=== PATIENT | female | born 1975 | race Caucasian/White ===

== ENCOUNTER 2016-08-05 15:24 | Emergency (ER) | payer OTHER ==
[~2016-08-05] VITALS: Ht 165.1 cm; Wt 125.2 kg
[~2016-08-05 15:24] MED LIST: AMOXIL500 MG PO; ANAPROX DS550 MG PO; AUGMENTIN 875 M1 TAB PO; AUGMENTIN 875875 MG PO; BACTRIM DS 8001 TA1 PO; BENADRYL25 MG PO; BENTYL20 MG; CARAFATE1 G1; CIPRO250 MG PO; CIPRO500 MG PO; CIPRODEX 0.3%-7.5 ML OT; CIPROFLOXACIN500 MG PO; CLARITIN10 MG PO; DIFLUCAN150 MG PO; FERROUS SULFAT325 MG PO; FLEXERIL5 MG PO; FLONASE ALLERG9.9 ML NAS; FLONASE0.05 MG/AC NS; FLOVENT0.11 MG/AC INH; Fioricet 325 MG1 TAB PO; HYDROCODONE BIT1 T11 PO; K-TAB20 MEQ PO; KEFLEX500 MG PO; KEY-E400 IU PO; LEVAQUIN750 M1 PO; LEVOFLOXACIN500 MG PO; LISINOPRIL10 MG PO; LOMOTIL 0.025 M1 TA1 PO; LOPRESSOR25 MG PO; LOPRESSOR50 MG PO; METOPROLOL TART50 M1 PO; MIRAPEX0.5 MG PO; MIRAPEX1.5 MG PO; MOTRIN800 MG PO; Miralax Powder255 GM PO; Motrin,Rufen800 MG PO; NAPROSYN500 MG PO; NEURONTIN300 MG PO; Oscal,Oyster S500 MG PO; PANTOPRAZOLE SO40 MG PO; PANTOPRAZOLE40 MG PO; PEPCID20 MG PO; PREDNICOT20 MG PO; PREDNISONE10 MG PO; PRILOSEC40 MG PO; PRINIVIL10 MG PO; PRINIVIL20 MG PO; PROTONIX40 MG PO; PROVENTIL0.09 MG/AC IH; ROBITUSSIN AC 110 ML PO; ROBITUSSIN DM120 ML PO; SEPTRA DS 800 M1 TAB PO; SINGULAIR10 M1 PO; SKELAXIN800 M1 PO; SYNTHROID,LEV100 MCG PO; TAMIFLU75 MG PO; TESSALON PERLE100 M1 PO; TORADOL10 MG PO; TRAMADOL HCL50 MG; TRAMADOL HCL50 MG PO; TRAMADOL50 MG PO; VICODIN 5/500 505 MG PO; VICODIN 500 MG-1 TAB PO; VITAMIN D32000 I1 PO; ZITHROMAX Z PA250 MG PO; ZOFRAN ODT4 MG SL; ZOFRAN4 MG PO; ZYRTEC10 MG
[2016-08-05] MEDS ORDERED: BACTRIM DS 8001 TA1 PO (15:53)
[2016-08-05] MEDS ORDERED: CEPHALEXIN500 M1 PO (15:53)
[2016-08-05] MEDS ORDERED: HYDROCODONE BIT1 T11 PO (15:53)
== END 2016-08-05 16:05 | disposition home or self-care (01) ==
LOC: ED 15:24
DX: N61.0 Mastitis without abscess (principal); F17.200 Nicotine dependence, unspecified, uncomplicated; Z90.49 Acquired absence of other specified parts of digestive tract; Z79.899 Other long term (current) drug therapy

== ENCOUNTER 2016-09-14 15:00 | Emergency (ER) | payer OTHER ==
[~2016-09-14] VITALS: Ht 165.1 cm; Wt 117.9 kg
[~2016-09-14 15:00] MED LIST changes: +CEPHALEXIN500 M1 PO
[2016-09-14 15:01] VITALS: BP 175/91
[2016-09-14] MEDS ORDERED: NAPROSYN500 MG PO (16:43)
== END 2016-09-14 16:56 | disposition home or self-care (01) ==
LOC: ED 15:00
DX: S90.32XA Contusion of left foot, initial encounter (principal); F17.200 Nicotine dependence, unspecified, uncomplicated; W20.8XXA Other cause of strike by thrown, projected or falling object, initial encounter; Y93.9 Activity, unspecified; Y92.9 Unspecified place or not applicable; Y99.9 Unspecified external cause status

== ENCOUNTER 2016-12-30 18:19 | Emergency (ER) | payer OTHER ==
[~2016-12-30] VITALS: Wt 117.9 kg
[2016-12-30 18:25] VITALS: BP 169/94
[2016-12-30 18:49] LABS: BILIRUBIN NEGATIVE (NEGATIVE); BLOOD NEGATIVE (NEGATIVE); CLARITY CLEAR (CLEAR); COLOR YELLOW (YELLOW); GLUCOSE NEGATIVE (NEGATIVE); KETONE NEGATIVE (NEGATIVE); LEUKO ESTERASE NEGATIVE (NEGATIVE); NITRITE NEGATIVE (NEGATIVE); PH 5.5 (5.0-9.0); PROTEIN NEGATIVE (NEGATIVE); SPECIFIC GRAVITY >= 1.030 (1.005-1.030)
[2016-12-30 19:23] LABS: BACTERIA TRACE; EPITHELIAL CELLS 51-100; MUCOUS TRACE; RBC 0-2 rbc/hpf (0-2); URINE REFLEX COMMENT NO (NO); WBC 0-2 wbc/hpf (0-5)
== END 2016-12-30 19:48 | disposition home or self-care (01) ==
LOC: ED 18:19
PROVIDERS: Student in an Organized Health Care Education/Training Program
DX: R51 Headache (principal); F17.200 Nicotine dependence, unspecified, uncomplicated; I10 Essential (primary) hypertension; K21.9 Gastro-esophageal reflux disease without esophagitis; E03.9 Hypothyroidism, unspecified; Z90.49 Acquired absence of other specified parts of digestive tract; Z98.890 Other specified postprocedural states; Z79.899 Other long term (current) drug therapy

== ENCOUNTER → 2017-02-25 | Outpatient (CLI) | payer OTHER | END | disposition home or self-care (01) | LOC: US 14:00 | DX: N92.6 Irregular menstruation, unspecified (principal) ==

== ENCOUNTER 2017-08-11 17:24 | Emergency (ER) | payer OTHER ==
[~2017-08-11] VITALS: Ht 167.6 cm; Wt 104.3 kg
[2017-08-11 17:25] VITALS: BP 178/84
[2017-08-11] MEDS ORDERED: MOBIC7.5 MG PO (19:06)
== END 2017-08-11 19:27 | disposition home or self-care (01) ==
LOC: ED 17:24
DX: M25.562 Pain in left knee (principal); M17.12 Unilateral primary osteoarthritis, left knee; Z79.899 Other long term (current) drug therapy; Z90.49 Acquired absence of other specified parts of digestive tract

== ENCOUNTER 2017-08-21 15:34 | Emergency (ER) | payer OTHER ==
[~2017-08-21] VITALS: Ht 165.1 cm; Wt 113.4 kg
[~2017-08-21 15:34] MED LIST changes: +MOBIC7.5 MG PO
[2017-08-21 15:39] VITALS: BP 176/65
[2017-08-21] MEDS ORDERED: CEPHALEXIN500 M1 PO (15:47)
[2017-08-21] MEDS ORDERED: NAPROSYN500 MG PO (15:47)
== END 2017-08-21 15:53 | disposition home or self-care (01) ==
LOC: ED 15:34
DX: N61.1 Abscess of the breast and nipple (principal); F17.200 Nicotine dependence, unspecified, uncomplicated; Z79.899 Other long term (current) drug therapy

== ENCOUNTER 2017-09-09 15:00 | Emergency (ER) | payer OTHER ==
[~2017-09-09] VITALS: Wt 86.2 kg
[2017-09-09 15:20] VITALS: BP 173/97
== END 2017-09-09 17:12 | disposition home or self-care (01) ==
LOC: ED 15:00
DX: M77.9 Enthesopathy, unspecified (principal); F17.200 Nicotine dependence, unspecified, uncomplicated; Z79.899 Other long term (current) drug therapy

== ENCOUNTER 2018-02-13 17:11 | Emergency (ER) | payer OTHER ==
[~2018-02-13] VITALS: Ht 165.1 cm; Wt 113.4 kg
[~2018-02-13 17:11] MED LIST changes: +AMOXICILLIN500 M2 PO; +Meclizine25 MG PO; +ZYRTEC10 MG PO
[2018-02-13] MEDS ORDERED: CEPHALEXIN500 M1 PO (17:36)
[2018-02-13] MEDS ORDERED: SEPTDS PO (17:36)
== END 2018-02-13 17:42 | disposition home or self-care (01) ==
LOC: ED 17:11
DX: N61.0 Mastitis without abscess (principal); Z79.899 Other long term (current) drug therapy; Z90.49 Acquired absence of other specified parts of digestive tract

== ENCOUNTER 2018-02-14 21:31 | Inpatient (IN) | payer OTHER ==
[~2018-02-14] VITALS: Ht 165.1 cm; Wt 127.6 kg
--- NOTE | ~2018-02-14 | PR ---
[place], [place] PROGRESS NOTE NAME: [id number] UNIT #: [id number] ROOM: 529 DOCTOR: SHADE KHAN MD BIRTHDATE: [birth year] DOS: 02/16/2018 SUBJECTIVE: The patient has been admitted to hospital with cellulitis of the breast with possible abscess of the left breast and her redness and swelling and pain of the left breast is increasing in spite of the antibiotic treatment and the patient had an ultrasound of the breast done yesterday, which showed no abnormal mass or fluid collection seen. Edema in the soft tissue is present. On examination, the patient has extension of the redness and there is some induration of the breast in the lower and medial part of the breast, but there is no definite abscess noted. B12 and folic acid is normal. OBJECTIVE: VITAL SIGNS: Her blood pressure today is 146/57, pulse 89, respirations 20, temperature 98.1. CHEST: Clear. HEART: Regular. ABDOMEN: Soft. So, the patient is not improving yet in spite of the antibiotic. SHADE KHAN MD CM:PNRUSS [id number] SHADE KHAN MD 03/10/18 0707 interface
--- NOTE | ~2018-02-14 | PR ---
[place], [place] PROGRESS NOTE [id number] UNIT #: [id number] ROOM: 529 DOCTOR: SHADE KHAN MD BIRTHDATE: [birth year] DOS: 02/15/2018 SUBJECTIVE: The patient has been admitted to hospital with the left breast infection. She had developed some cellulitis and then was seen in the Emergency on 02/12/2018 also, but then the pain and tenderness have become worse and needed to be admitted to the hospital as breast infection getting out of control, use some IV antibiotic. Her chest x-ray does not show any problem. The patient has a past history of hypertension, GERD, hypothyroidism, osteoarthritis, restless leg syndrome, tobacco abuse and history of tonsillectomy, cholecystectomy in the past. Her hemoglobin is 11.4. Comprehensive metabolic profile showed glucose 104, BUN 7, creatinine 0.54, chloride 109 and calcium 7.9. Lipid profile is fairly normal. CBC showed white count 12,300, hemoglobin 11.4, hematocrit 36.9, has swelling of breast and is going for ultrasound of her breast. OBJECTIVE: VITAL SIGNS: Her blood pressure 150/76, pulse 102, respirations 20, temperature 98.3. SHADE KHAN MD CM:PNTRANS [id number] SHADE KHAN MD 03/10/18 0817 interface
[~2018-02-14 21:31] MED LIST changes: +SEPTDS PO
[2018-02-14 21:35] VITALS: BP 175/106
[2018-02-14 22:35] LABS: BILIRUBIN NEGATIVE (NEGATIVE); BLOOD NEGATIVE (NEGATIVE); CLARITY SL CLOUDY (CLEAR); COLOR YELLOW (YELLOW); GLUCOSE NEGATIVE (NEGATIVE); KETONE NEGATIVE (NEGATIVE); LEUKO ESTERASE NEGATIVE (NEGATIVE); NITRITE NEGATIVE (NEGATIVE); UROBILINOGEN 0.2 E.U./dl (0.2-1.0)
[2018-02-14 22:40] VITALS: BP 160/100
[2018-02-14 22:48] LABS: BASO % 0.3 % (0.0-1.0); EOS # 0.3 10*3/uL (0.0-0.4); EOS % 1.8 % (1.0-4.0); HEMATOCRIT 38.3 % (37.0-47.0); HEMOGLOBIN 12.4 g/dl (12.0-16.0); LYMPH # 4.5 10*3/uL (1.3-4.4); LYMPH % 31.3 % (27.0-41.0); MEAN CELL VOLUME 81.5 fl (81.0-99.0); MEAN CORPUSCULAR HGB 26.4 pg (27.0-31.0); MEAN CORPUSCULAR HGB CONC 32.4 g/dl (33.0-37.0); MEAN PLATELET VOLUME 9.7 fl (9.6-12.3); MONO # 0.6 10*3/uL (0.1-1.0); MONO % 4.5 % (3.0-9.0); NEUT # 8.8 10*3/uL (2.3-7.9); NEUT % 61.6 % (47.0-73.0); PLATELET COUNT AUTOMATED 292 10*3/uL (130-400); RED CELL DISTRI WIDTH 14.2 % (0-14.5); WHITE BLOOD COUNT 14.2 10*3/uL (4.8-10.8)
[2018-02-14 23:04] LABS: ALBUMIN 3.3 gm/dl (3.1-4.5); ALKALINE PHOSPHATASE 94 U/L (45-117); BUN 9 mg/dl (7-24); CHLORIDE 107 mmol/L (98-107); CREATININE 0.65 mg/dL (0.55-1.02); POTASSIUM 3.3 mmol/L (3.5-5.1); SGOT/AST 24 IU/L (3-35); SGPT/ALT 41 U/L (12-78); SODIUM 140 mmol/L (136-145); TOTAL PROTEIN 7.6 gm/dL (6.4-8.2)
[2018-02-14 23:05] VITALS: BP 150/76
[2018-02-14 23:06] LABS: B-hCG (QUALITATIVE) NEGATIVE (NEGATIVE)
[2018-02-14 23:10] LABS: EPITHELIAL CELLS 35-40; MUCOUS TRACE
[2018-02-15 06:30] LABS: HEMATOCRIT 36.5 % (37.0-47.0); HEMOGLOBIN 11.4 g/dl (12.0-16.0); MEAN CORPUSCULAR HGB 26.5 pg (27.0-31.0); MEAN CORPUSCULAR HGB CONC 31.2 g/dl (33.0-37.0); MEAN PLATELET VOLUME 9.9 fl (9.6-12.3); PLATELET COUNT AUTOMATED 290 10*3/uL (130-400); RED BLOOD COUNT 4.31 10*6/uL (4.10-5.10); RED CELL DISTRI WIDTH 14.2 % (0-14.5); WHITE BLOOD COUNT 12.3 10*3/uL (4.8-10.8)
[2018-02-15 06:31] LABS: MEAN CELL VOLUME 84.7 fl (81.0-99.0)
[2018-02-15 06:50] LABS: ALBUMIN 2.8 gm/dl (3.1-4.5); BUN 7 mg/dl (7-24); CHLORIDE 109 mmol/L (98-107); CHOLESTEROL 148 mg/dL (<200); CREATININE 0.54 mg/dL (0.55-1.02); PHOSPHOROUS 3.2 mg/dL (2.5-4.9); POTASSIUM 3.7 mmol/L (3.5-5.1); SGOT/AST 20 IU/L (3-35); SGPT/ALT 33 U/L (12-78); SODIUM 141 mmol/L (136-145); TRIGLYCERIDES 102 mg/dl (<150); VLDL CHOLESTEROL 20 mg/dL (6-40)
[2018-02-15 06:57] LABS: ALKALINE PHOSPHATASE 79 U/L (45-117); FREE T4 1.04 ng/dl (0.76-1.46); HDL CHOLESTEROL 35 mg/dl (40-60); LDL CHOLESTEROL 93 mg/dL (9-159); TOTAL PROTEIN 6.2 gm/dL (6.4-8.2)
[2018-02-15 07:19] LABS: PLATELET SUFFICIENCY NORMAL (NORMAL); TOTAL CELLS COUNTED 100 #CELLS
[2018-02-15 08:00] VITALS: BP 146/66
[2018-02-15 08:43] LABS: VITAMIN D, 25-HYDROXY 14.9 ng/mL (30-100)
[2018-02-15 12:00] VITALS: BP 143/50
[2018-02-15 16:00] VITALS: BP 160/68
[2018-02-15 20:00] VITALS: BP 144/74
[2018-02-16] VITALS: BP 146/57
[2018-02-16 08:00] VITALS: BP 165/98
[2018-02-16 12:00] VITALS: BP 160/81
[2018-02-16 16:00] VITALS: BP 122/91
[2018-02-16 17:00] VITALS: BP 142/84
[2018-02-16 20:00] VITALS: BP 138/64
[2018-02-17] VITALS: BP 126/52
[2018-02-17 08:00] VITALS: BP 154/81
[2018-02-17 16:00] VITALS: BP 158/72
[2018-02-17 20:00] VITALS: BP 147/69
[2018-02-18] VITALS: BP 149/65
[2018-02-18 06:24] LABS: BASO # 0.1 10*3/uL (0.0-0.1); BASO % 0.6 % (0.0-1.0); EOS # 0.3 10*3/uL (0.0-0.4); EOS % 3.3 % (1.0-4.0); HEMATOCRIT 39.1 % (37.0-47.0); HEMOGLOBIN 12.2 g/dl (12.0-16.0); LYMPH # 4.2 10*3/uL (1.3-4.4); LYMPH % 46.3 % (27.0-41.0); MEAN CORPUSCULAR HGB 25.9 pg (27.0-31.0); MEAN CORPUSCULAR HGB CONC 31.2 g/dl (33.0-37.0); MEAN PLATELET VOLUME 10.1 fl (9.6-12.3); MONO # 0.5 10*3/uL (0.1-1.0); MONO % 5.8 % (3.0-9.0); NEUT % 43.8 % (47.0-73.0); PLATELET COUNT AUTOMATED 325 10*3/uL (130-400); RED BLOOD COUNT 4.71 10*6/uL (4.10-5.10); WHITE BLOOD COUNT 9.1 10*3/uL (4.8-10.8)
[2018-02-18 06:28] LABS: BUN 9 mg/dl (7-24); CHLORIDE 105 mmol/L (98-107); CREATININE 0.53 mg/dL (0.55-1.02); POTASSIUM 4.2 mmol/L (3.5-5.1); SODIUM 139 mmol/L (136-145)
[2018-02-18 08:00] VITALS: BP 156/77
[2018-02-18 12:00] VITALS: BP 148/86
[2018-02-18 16:00] VITALS: BP 129/76
[2018-02-18 20:00] VITALS: BP 151/75
[2018-02-19] VITALS: BP 126/69
[2018-02-19 08:00] VITALS: BP 138/79
[2018-02-19] MEDS ORDERED: DOXYCYCLINE100 M3 PO (10:41)
[2018-02-19] MEDS ORDERED: METFORMIN HYDR500 MG PO (11:46)
== END 2018-02-19 11:51 | disposition home or self-care (01) | DRG 872 ==
LOC: ED 21:31 → EDHOLD 22:27 → 5E 22:27
PROVIDERS: Emergency Medicine Emergency Medical Services; Internal Medicine
DX: A41.9 Sepsis, unspecified organism (principal); E44.0 Moderate protein-calorie malnutrition; Z68.42 Body mass index [BMI] 45.0-49.9, adult; N61.0 Mastitis without abscess; R19.7 Diarrhea, unspecified; R79.82 Elevated C-reactive protein (CRP); E87.6 Hypokalemia; K21.9 Gastro-esophageal reflux disease without esophagitis; I10 Essential (primary) hypertension; E03.9 Hypothyroidism, unspecified; J44.9 Chronic obstructive pulmonary disease, unspecified; M54.12 Radiculopathy, cervical region; M19.90 Unspecified osteoarthritis, unspecified site; E11.65 Type 2 diabetes mellitus with hyperglycemia; F17.210 Nicotine dependence, cigarettes, uncomplicated; G25.81 Restless legs syndrome; D64.9 Anemia, unspecified; E66.9 Obesity, unspecified; E87.8 Other disorders of electrolyte and fluid balance, not elsewhere classified; Z90.49 Acquired absence of other specified parts of digestive tract; Z71.6 Tobacco abuse counseling; Z80.1 Family history of malignant neoplasm of trachea, bronchus and lung; Z83.3 Family history of diabetes mellitus; Z82.49 Family history of ischemic heart disease and other diseases of the circulatory system; Z79.899 Other long term (current) drug therapy

== ENCOUNTER 2018-08-06 16:11 | Emergency (ER) | payer SELFPAY ==
[~2018-08-06] VITALS: Wt 113.4 kg
[2018-08-06 16:11] VITALS: BP 172/87
[~2018-08-06 16:11] MED LIST changes: +DOXYCYCLINE100 M3 PO; +METFORMIN HYDR500 MG PO
[2018-08-06] MEDS ORDERED: ROBAXIN500 M1 PO (18:23)
[2018-08-06] MEDS ORDERED: NAPROSYN500 MG PO (18:23)
[2018-08-06] MEDS ORDERED: MEDROL DOSEPAK4 MG PO (18:23)
== END 2018-08-06 18:26 | disposition home or self-care (01) ==
LOC: ED 16:11
DX: S46.911A Strain of unspecified muscle, fascia and tendon at shoulder and upper arm level, right arm, initial encounter (principal); F17.200 Nicotine dependence, unspecified, uncomplicated; Z79.899 Other long term (current) drug therapy; X58.XXXA Exposure to other specified factors, initial encounter; Y93.89 Activity, other specified; Y92.89 Other specified places as the place of occurrence of the external cause; Y99.8 Other external cause status

== ENCOUNTER 2018-11-25 14:40 | Emergency (ER) | payer SELFPAY ==
[~2018-11-25] VITALS: Wt 117.9 kg
[2018-11-25 14:40] VITALS: BP 158/81
[~2018-11-25 14:40] MED LIST changes: +MEDROL DOSEPAK4 MG PO; +ROBAXIN500 M1 PO
[2018-11-25] MEDS ORDERED: PRAMIPEXOLE DI0.5 MG PO ×2 (16:25→16:26)
== END 2018-11-25 16:36 | disposition home or self-care (01) ==
LOC: ED 14:40
DX: G25.81 Restless legs syndrome (principal); R19.7 Diarrhea, unspecified; R11.2 Nausea with vomiting, unspecified; E11.9 Type 2 diabetes mellitus without complications; I10 Essential (primary) hypertension; E03.9 Hypothyroidism, unspecified; M19.90 Unspecified osteoarthritis, unspecified site; K21.9 Gastro-esophageal reflux disease without esophagitis; F17.200 Nicotine dependence, unspecified, uncomplicated; Z76.0 Encounter for issue of repeat prescription; Z79.899 Other long term (current) drug therapy

== ENCOUNTER 2019-09-22 09:35 | Emergency (ER) | payer SELFPAY ==
[~2019-09-22] VITALS: Ht 167.6 cm; Wt 104.3 kg
[~2019-09-22 09:35] MED LIST changes: +PRAMIPEXOLE DI0.5 MG PO
[2019-09-22 09:44] VITALS: BP 158/96
[2019-09-22] MEDS ORDERED: VIBRAMYCIN100 MG PO (11:31)
== END 2019-09-22 11:37 | disposition home or self-care (01) ==
LOC: ED 09:35
DX: J40 Bronchitis, not specified as acute or chronic (principal); I10 Essential (primary) hypertension; K21.9 Gastro-esophageal reflux disease without esophagitis; E07.9 Disorder of thyroid, unspecified; F17.200 Nicotine dependence, unspecified, uncomplicated; Z79.899 Other long term (current) drug therapy; Z90.49 Acquired absence of other specified parts of digestive tract; Z90.89 Acquired absence of other organs

== ENCOUNTER 2019-12-01 09:44 | Emergency (ER) | payer SELFPAY ==
[~2019-12-01] VITALS: Ht 167.6 cm; Wt 102.1 kg
[~2019-12-01 09:44] MED LIST changes: +VIBRAMYCIN100 MG PO
[2019-12-01 09:50] VITALS: BP 149/81
[2019-12-01] MEDS ORDERED: KEFLEX500 M1 PO (10:08)
[2019-12-01] MEDS ORDERED: SEPTDS PO (10:08)
== END 2019-12-01 10:18 | disposition home or self-care (01) ==
LOC: ED 09:44
DX: L03.116 Cellulitis of left lower limb (principal); I10 Essential (primary) hypertension; K21.9 Gastro-esophageal reflux disease without esophagitis; F17.200 Nicotine dependence, unspecified, uncomplicated; Z79.899 Other long term (current) drug therapy

== ENCOUNTER 2019-12-03 21:41 | Emergency (ER) | payer SELFPAY ==
[~2019-12-03] VITALS: Ht 167.6 cm; Wt 99.8 kg
[~2019-12-03 21:41] MED LIST changes: +KEFLEX500 M1 PO
[2019-12-03 21:54] VITALS: BP 152/77
[2019-12-03 22:41] LABS: BASO # 0.1 10*3/uL (0.0-0.1); BASO % 0.4 % (0.0-1.0); EOS # 0.2 10*3/uL (0.0-0.4); EOS % 1.9 % (1.0-4.0); HEMATOCRIT 39.3 % (37.0-47.0); LYMPH # 3.8 10*3/uL (1.3-4.4); LYMPH % 32.4 % (27.0-41.0); MEAN CELL VOLUME 77.1 fl (81.0-99.0); MEAN CORPUSCULAR HGB 24.1 pg (27.0-31.0); MEAN CORPUSCULAR HGB CONC 31.3 g/dl (33.0-37.0); MEAN PLATELET VOLUME 9.3 fl (9.6-12.3); MONO # 0.6 10*3/uL (0.1-1.0); MONO % 5.3 % (3.0-9.0); NEUT % 59.7 % (47.0-73.0); PLATELET COUNT AUTOMATED 390 10*3/uL (130-400); RED CELL DISTRI WIDTH 16.2 % (0-14.5); WHITE BLOOD COUNT 11.7 10*3/uL (4.8-10.8)
[2019-12-03 22:58] LABS: ALBUMIN 3.3 gm/dl (3.1-4.5); ALKALINE PHOSPHATASE 113 U/L (45-117); BUN 12 mg/dl (7-24); CHLORIDE 107 mmol/L (98-107); CREATININE 0.65 mg/dL (0.55-1.02); POTASSIUM 3.4 mmol/L (3.5-5.1); SGOT/AST 62 IU/L (3-35); SGPT/ALT 67 U/L (12-78); SODIUM 137 mmol/L (136-145); TOTAL PROTEIN 7.4 gm/dL (6.4-8.2)
[2019-12-03] MEDS ORDERED: CLEOCIN HCL150 MG PO ×2 (23:10→23:18)
== END 2019-12-03 23:33 | disposition home or self-care (01) ==
LOC: ED 21:41
PROVIDERS: Nurse Practitioner Family
DX: L02.416 Cutaneous abscess of left lower limb (principal); L03.90 Cellulitis, unspecified; I10 Essential (primary) hypertension; K21.9 Gastro-esophageal reflux disease without esophagitis; Z79.899 Other long term (current) drug therapy

== ENCOUNTER → 2020-04-17 | Outpatient (CLI) | payer SELFPAY ==
[~2020-04-17] MED LIST changes: +CLEOCIN HCL150 MG PO
== END | disposition home or self-care (01) ==
LOC: COVID19 14:17
PROVIDERS: ATTEND Internal Medicine
DX: Z20.828 Contact with and (suspected) exposure to other viral communicable diseases (principal)

== ENCOUNTER 2020-04-23 12:48 | Emergency (ER) | payer SELFPAY ==
[~2020-04-23] VITALS: Ht 172.7 cm; Wt 95.3 kg
[2020-04-23 13:01] VITALS: BP 178/97
== END 2020-04-23 14:40 | disposition home or self-care (01) ==
LOC: ED 12:48
DX: R06.02 Shortness of breath (principal); R07.89 Other chest pain; R53.83 Other fatigue; Z79.899 Other long term (current) drug therapy; Z20.828 Contact with and (suspected) exposure to other viral communicable diseases

== ENCOUNTER → 2020-05-05 | Outpatient (CLI) | payer SELFPAY | END | disposition home or self-care (01) | LOC: COVID19 15:37 | PROVIDERS: ATTEND Internal Medicine | DX: Z20.828 Contact with and (suspected) exposure to other viral communicable diseases (principal) ==

== ENCOUNTER 2020-08-02 08:10 | Observation (INO) | payer SELFPAY ==
[~2020-08-02] VITALS: Ht 167.6 cm; Wt 127.9 kg
[~2020-08-02 08:10] MED LIST changes: +ZESTRIL40 MG PO
[2020-08-02 08:16] VITALS: BP 181/89
[2020-08-02 08:52] LABS: BASO % 0.4 % (0.0-1.0); EOS # 0.2 10*3/uL (0.0-0.4); EOS % 2.8 % (1.0-4.0); HEMATOCRIT 42.4 % (37.0-47.0); LYMPH # 2.9 10*3/uL (1.3-4.4); LYMPH % 34.8 % (27.0-41.0); MEAN CELL VOLUME 80.8 fl (81.0-99.0); MEAN CORPUSCULAR HGB 25.5 pg (27.0-31.0); MEAN CORPUSCULAR HGB CONC 31.6 g/dl (33.0-37.0); MEAN PLATELET VOLUME 9.8 fl (9.6-12.3); MONO # 0.4 10*3/uL (0.1-1.0); MONO % 5.3 % (3.0-9.0); NEUT # 4.6 10*3/uL (2.3-7.9); NEUT % 56.3 % (47.0-73.0); PLATELET COUNT AUTOMATED 279 10*3/uL (130-400); RED BLOOD COUNT 5.25 10*6/uL (4.10-5.10); RED CELL DISTRI WIDTH 14.8 % (0-14.5); WHITE BLOOD COUNT 8.2 10*3/uL (4.8-10.8)
[2020-08-02 09:03] LABS: ACT PARTIAL THROMBO TIME 25.1 SECONDS (20.0-32.1)
[2020-08-02 09:08] LABS: ALBUMIN 3.3 gm/dl (3.1-4.5); ALKALINE PHOSPHATASE 134 U/L (45-117); BUN 11 mg/dl (7-24); CHLORIDE 104 mmol/L (98-107); CREATININE 0.71 mg/dL (0.55-1.02); LIPASE 107 U/L (73-393); POTASSIUM 3.9 mmol/L (3.5-5.1); SGOT/AST 164 IU/L (3-35); SGPT/ALT 153 U/L (12-78); SODIUM 135 mmol/L (136-145); TOTAL PROTEIN 7.4 gm/dL (6.4-8.2)
[2020-08-02 09:11] LABS: BETA-HCG, QUANT < 1.0 mIU/mL (1-3); TROPONIN I < 0.015 ng/ml (<0.045)
[2020-08-02 09:15] LABS: BILIRUBIN Negative (Negative); BLOOD Negative (Negative); CLARITY Clear (Clear); COLOR Yellow (Yellow); GLUCOSE 3+ (Negative); KETONE Negative (Negative); LEUKO ESTERASE Negative (Negative); NITRITE Negative (Negative); PH 5.5 (4.5-8.0); SPECIFIC GRAVITY >= 1.030 (1.001-1.030); UROBILINOGEN 0.2 E.U./dl (0.0-1.0)
[2020-08-02 09:30] LABS: BACTERIA 2+; EPITHELIAL CELLS 16-20; WBC 0-2 wbc/hpf (0-5)
[2020-08-02 11:50] VITALS: BP 169/84
[2020-08-02] MEDS ORDERED: GLUCOTROL10 MG PO (14:36)
[2020-08-02] MEDS ORDERED: NEURONTIN300 MG PO (14:36)
[2020-08-02] MEDS ORDERED: MIRAPEX0.5 MG PO (14:37)
[2020-08-02] MEDS ORDERED: GLUCOPHAGE1000 MG PO (14:42)
[2020-08-02] MEDS ORDERED: LIPITOR10 MG PO (14:42)
[2020-08-02] MEDS ORDERED: HYDR25T PO (14:43)
[2020-08-02] MEDS ORDERED: MOBIC15 MG PO (14:43)
[2020-08-02 15:09] VITALS: BP 160/80
[2020-08-02 16:00] VITALS: BP 153/99
[2020-08-02 20:00] VITALS: BP 151/71
[2020-08-03] VITALS: BP 161/84
[2020-08-03 06:18] LABS: BASO % 0.4 % (0.0-1.0); EOS # 0.3 10*3/uL (0.0-0.4); EOS % 2.8 % (1.0-4.0); HEMATOCRIT 42.4 % (37.0-47.0); LYMPH # 4.2 10*3/uL (1.3-4.4); LYMPH % 43.7 % (27.0-41.0); MEAN CELL VOLUME 80.9 fl (81.0-99.0); MEAN CORPUSCULAR HGB 25.6 pg (27.0-31.0); MEAN CORPUSCULAR HGB CONC 31.6 g/dl (33.0-37.0); MEAN PLATELET VOLUME 9.7 fl (9.6-12.3); MONO # 0.4 10*3/uL (0.1-1.0); NEUT # 4.7 10*3/uL (2.3-7.9); NEUT % 48.9 % (47.0-73.0); PLATELET COUNT AUTOMATED 285 10*3/uL (130-400); RED BLOOD COUNT 5.24 10*6/uL (4.10-5.10); RED CELL DISTRI WIDTH 14.9 % (0-14.5); WHITE BLOOD COUNT 9.6 10*3/uL (4.8-10.8)
[2020-08-03 06:46] LABS: ALBUMIN 3.2 gm/dl (3.1-4.5); ALKALINE PHOSPHATASE 126 U/L (45-117); BUN 10 mg/dl (7-24); CHLORIDE 105 mmol/L (98-107); CHOLESTEROL 211 mg/dL (<200); CREATININE 0.46 mg/dL (0.55-1.02); POTASSIUM 4.1 mmol/L (3.5-5.1); SGOT/AST 171 IU/L (3-35); SGPT/ALT 151 U/L (12-78); SODIUM 137 mmol/L (136-145); TOTAL PROTEIN 7.1 gm/dL (6.4-8.2); TRIGLYCERIDES 133 mg/dl (<150); VLDL CHOLESTEROL 27 mg/dL (6-40)
[2020-08-03 06:52] LABS: FREE T4 1.02 ng/dl (0.76-1.46); HDL CHOLESTEROL 47 mg/dl (40-60); LDL CHOLESTEROL 137 mg/dL (9-159)
[2020-08-03 07:45] VITALS: BP 140/80
[2020-08-03 07:51] LABS: VITAMIN D, 25-HYDROXY 9.4 ng/mL (30-100)
[2020-08-03 08:00] VITALS: BP 132/81
[2020-08-03 12:17] VITALS: BP 155/80
[2020-08-03] MEDS ORDERED: GLUCOPHAGE1000 MG PO (13:22)
[2020-08-03] MEDS ORDERED: VITAMIN D250 MCG PO (13:22)
[2020-08-03] MEDS ORDERED: GLUCOTROL10 MG PO (13:22)
[2020-08-04 05:05] LABS: HEP B CORE AB, IGM Negative (Negative); HEPATITIS B SURFACE AG Negative (Negative); HEPATITIS C VIRUS ANTIBODY <0.1 s/co (0.0-0.9)
== END 2020-08-03 15:56 | disposition home or self-care (01) ==
LOC: ED 08:10 → EDHOLD 11:17 → 5E 11:17 → EDHOLD 11:17 → 5E 12:27
PROVIDERS: Emergency Medicine; Hospitalist; ADMIT Internal Medicine; ATTEND Internal Medicine
DX: R07.2 Precordial pain (principal); F17.200 Nicotine dependence, unspecified, uncomplicated; R42 Dizziness and giddiness; R74.01 Elevation of levels of liver transaminase levels; F17.209 Nicotine dependence, unspecified, with unspecified nicotine-induced disorders; E11.65 Type 2 diabetes mellitus with hyperglycemia; K21.9 Gastro-esophageal reflux disease without esophagitis; E03.9 Hypothyroidism, unspecified; I10 Essential (primary) hypertension; M19.90 Unspecified osteoarthritis, unspecified site; G25.81 Restless legs syndrome; E44.0 Moderate protein-calorie malnutrition; E66.01 Morbid (severe) obesity due to excess calories; Z90.49 Acquired absence of other specified parts of digestive tract; Z71.6 Tobacco abuse counseling; Z98.890 Other specified postprocedural states

== ENCOUNTER → 2020-08-04 | Outpatient (CLI) | payer SELFPAY ==
[~2020-08-04] MED LIST changes: +GLUCOPHAGE1000 MG PO; +GLUCOTROL10 MG PO; +HYDR25T PO; +LIPITOR10 MG PO; +MOBIC15 MG PO; +PHENERGAN25 M3 PO; +VITAMIN D250 MCG PO
== END | disposition home or self-care (01) ==
LOC: CARD 01:50
PROVIDERS: ATTEND Internal Medicine Cardiovascular Disease
DX: R07.9 Chest pain, unspecified (principal)

== ENCOUNTER 2020-08-21 15:39 | Emergency (ER) | payer SELFPAY ==
[~2020-08-21] VITALS: Wt 127.0 kg
[~2020-08-21 15:39] MED LIST changes: -PHENERGAN25 M3 PO
[2020-08-21 15:56] VITALS: BP 151/78
[2020-08-21 16:40] LABS: ALBUMIN 3.8 gm/dl (3.1-4.5); ALKALINE PHOSPHATASE 103 U/L (45-117); BUN 9 mg/dl (7-24); CHLORIDE 106 mmol/L (98-107); CREATININE 0.57 mg/dL (0.55-1.02); POTASSIUM 3.3 mmol/L (3.5-5.1); SGOT/AST 83 IU/L (3-35); SGPT/ALT 119 U/L (12-78); SODIUM 138 mmol/L (136-145); TOTAL PROTEIN 7.9 gm/dL (6.4-8.2)
[2020-08-21] MEDS ORDERED: PHENERGAN25 M3 PO (16:59)
== END 2020-08-21 17:38 | disposition home or self-care (01) ==
LOC: ED 15:39
PROVIDERS: Student in an Organized Health Care Education/Training Program
DX: R11.2 Nausea with vomiting, unspecified (principal); T50.995A Adverse effect of other drugs, medicaments and biological substances, initial encounter; F17.200 Nicotine dependence, unspecified, uncomplicated; Z79.899 Other long term (current) drug therapy; Z92.89 Personal history of other medical treatment; Z90.49 Acquired absence of other specified parts of digestive tract; Y92.89 Other specified places as the place of occurrence of the external cause

== ENCOUNTER → 2020-09-15 | Outpatient (CLI) | payer SELFPAY ==
[~2020-09-15] MED LIST changes: +PHENERGAN25 M3 PO
[2020-09-15 11:49] LABS: BUN 6 mg/dl (7-24); CHLORIDE 106 mmol/L (98-107); CREATININE 0.58 mg/dL (0.55-1.02); POTASSIUM 3.4 mmol/L (3.5-5.1); SODIUM 138 mmol/L (136-145)
== END | disposition home or self-care (01) ==
LOC: RESCLI 01:20
PROVIDERS: Internal Medicine; ATTEND Internal Medicine Nephrology
DX: E11.65 Type 2 diabetes mellitus with hyperglycemia (principal); R11.0 Nausea; G25.81 Restless legs syndrome; G62.9 Polyneuropathy, unspecified; E55.9 Vitamin D deficiency, unspecified; E78.5 Hyperlipidemia, unspecified; F17.200 Nicotine dependence, unspecified, uncomplicated; Z79.84 Long term (current) use of oral hypoglycemic drugs; Z79.899 Other long term (current) drug therapy; Z90.49 Acquired absence of other specified parts of digestive tract; Z98.890 Other specified postprocedural states

== ENCOUNTER 2020-11-25 18:20 | Emergency (ER) | payer SELFPAY ==
[~2020-11-25] VITALS: Ht 165.1 cm; Wt 114.3 kg
[2020-11-25 18:29] VITALS: BP 153/90
[2020-11-25] MEDS ORDERED: KENALOG 0.025%15 GM T (18:43)
== END 2020-11-25 19:10 | disposition home or self-care (01) ==
LOC: ED 18:20
DX: L23.9 Allergic contact dermatitis, unspecified cause (principal); E11.9 Type 2 diabetes mellitus without complications; F17.200 Nicotine dependence, unspecified, uncomplicated; Z79.899 Other long term (current) drug therapy; Z90.89 Acquired absence of other organs; Z90.49 Acquired absence of other specified parts of digestive tract

== ENCOUNTER 2021-01-22 17:23 | Emergency (ER) | payer SELFPAY ==
[~2021-01-22] VITALS: Ht 167.6 cm; Wt 99.8 kg
[~2021-01-22 17:23] MED LIST changes: +KENALOG 0.025%15 GM T
[2021-01-22 18:27] VITALS: BP 152/73
[2021-01-22] MEDS ORDERED: PREDNISONE20 M1 PO (19:39)
[2021-01-22] MEDS ORDERED: PROVENTIL HFA6.7 GM INH (19:39)
== END 2021-01-22 21:15 | disposition home or self-care (01) ==
LOC: ED 17:23
DX: U07.1 COVID-19 (principal); Z90.49 Acquired absence of other specified parts of digestive tract; Z79.899 Other long term (current) drug therapy

== ENCOUNTER → 2021-01-30 | Outpatient (CLI) | payer SELFPAY ==
[~2021-01-30] MED LIST changes: +PREDNISONE20 M1 PO; +PROVENTIL HFA6.7 GM INH
[2021-01-30 15:18] LABS: BILIRUBIN Negative (Negative); BLOOD Negative (Negative); CLARITY Cloudy (Clear); COLOR Yellow (Yellow); GLUCOSE Negative (Negative); HEMATOCRIT 44.8 % (37.0-47.0); KETONE Trace (Negative); LEUKO ESTERASE Negative (Negative); MEAN CELL VOLUME 84.5 fl (81.0-99.0); MEAN CORPUSCULAR HGB 27.2 pg (27.0-31.0); MEAN CORPUSCULAR HGB CONC 32.1 g/dl (33.0-37.0); MEAN PLATELET VOLUME 9.3 fl (9.6-12.3); NITRITE Negative (Negative); PLATELET COUNT AUTOMATED 367 10*3/uL (130-400); RED CELL DISTRI WIDTH 14.2 % (0-14.5); SPECIFIC GRAVITY >= 1.030 (1.001-1.030); WHITE BLOOD COUNT 15.5 10*3/uL (4.8-10.8)
[2021-01-30 15:34] LABS: BACTERIA 2+; EPITHELIAL CELLS 31-40; MUCOUS 1+; RBC 0-2 rbc/hpf (0-2)
[2021-01-30 15:47] LABS: ALBUMIN 3.5 gm/dl (3.1-4.5); ALKALINE PHOSPHATASE 107 U/L (45-117); BUN 12 mg/dl (7-24); CHLORIDE 107 mmol/L (98-107); CHOLESTEROL 239 mg/dL (<200); CREATININE 0.56 mg/dL (0.55-1.02); LDL CHOLESTEROL 149 mg/dL (9-159); POTASSIUM 3.5 mmol/L (3.5-5.1); SGOT/AST 33 IU/L (3-35); SGPT/ALT 44 U/L (12-78); SODIUM 139 mmol/L (136-145); TOTAL PROTEIN 7.8 gm/dL (6.4-8.2); TRIGLYCERIDES 210 mg/dl (<150)
[2021-01-30 16:15] LABS: FREE T4 0.85 ng/dl (0.76-1.46)
[2021-01-30 16:17] LABS: VITAMIN D, 25-HYDROXY 22.6 ng/mL (30-100)
[2021-01-30 16:23] LABS: ATYPICAL LYMPHS 4 % (0-0); PLATELET SUFFICIENCY NORMAL (NORMAL); TOTAL CELLS COUNTED 100 #CELLS
[2021-01-31 12:07] LABS: CREATININE,URINE 217.2 mg/dL (Not Estab.)
== END | disposition home or self-care (01) ==
LOC: RESCLI 00:17
PROVIDERS: ATTEND Internal Medicine Nephrology
DX: R20.8 Other disturbances of skin sensation (principal); E11.65 Type 2 diabetes mellitus with hyperglycemia; G25.81 Restless legs syndrome; E78.5 Hyperlipidemia, unspecified; E55.9 Vitamin D deficiency, unspecified; G62.9 Polyneuropathy, unspecified; I10 Essential (primary) hypertension; R19.5 Other fecal abnormalities; R39.9 Unspecified symptoms and signs involving the genitourinary system; K21.9 Gastro-esophageal reflux disease without esophagitis; Z79.84 Long term (current) use of oral hypoglycemic drugs; Z79.899 Other long term (current) drug therapy; F17.210 Nicotine dependence, cigarettes, uncomplicated; Z90.49 Acquired absence of other specified parts of digestive tract

== ENCOUNTER → 2021-02-07 | Outpatient (CLI) | payer SELFPAY | END | disposition home or self-care (01) | LOC: RESCLI 00:27 | PROVIDERS: ATTEND Internal Medicine | DX: E11.65 Type 2 diabetes mellitus with hyperglycemia (principal); G25.81 Restless legs syndrome; E78.5 Hyperlipidemia, unspecified; G62.9 Polyneuropathy, unspecified; R39.9 Unspecified symptoms and signs involving the genitourinary system; K21.9 Gastro-esophageal reflux disease without esophagitis; R19.7 Diarrhea, unspecified; K76.0 Fatty (change of) liver, not elsewhere classified; Z79.84 Long term (current) use of oral hypoglycemic drugs; Z79.899 Other long term (current) drug therapy ==

== ENCOUNTER → 2021-02-15 | Outpatient (CLI) | payer SELFPAY | END | disposition home or self-care (01) | LOC: RESCLI 00:25 | PROVIDERS: ATTEND Student in an Organized Health Care Education/Training Program | DX: R19.7 Diarrhea, unspecified (principal); E11.65 Type 2 diabetes mellitus with hyperglycemia; G25.81 Restless legs syndrome; E55.9 Vitamin D deficiency, unspecified; K21.9 Gastro-esophageal reflux disease without esophagitis; G62.9 Polyneuropathy, unspecified; Z79.84 Long term (current) use of oral hypoglycemic drugs; Z79.899 Other long term (current) drug therapy; Z98.890 Other specified postprocedural states; Z90.49 Acquired absence of other specified parts of digestive tract ==

== ENCOUNTER → 2021-02-22 | Outpatient (CLI) | payer SELFPAY | END | disposition home or self-care (01) | LOC: RESCLI 01:09 | PROVIDERS: ATTEND Student in an Organized Health Care Education/Training Program | DX: E11.65 Type 2 diabetes mellitus with hyperglycemia (principal); G25.81 Restless legs syndrome; E55.9 Vitamin D deficiency, unspecified; G62.9 Polyneuropathy, unspecified; I10 Essential (primary) hypertension; E78.5 Hyperlipidemia, unspecified; K21.9 Gastro-esophageal reflux disease without esophagitis; Z90.49 Acquired absence of other specified parts of digestive tract; Z98.890 Other specified postprocedural states; Z79.84 Long term (current) use of oral hypoglycemic drugs; Z79.899 Other long term (current) drug therapy ==

== ENCOUNTER 2021-05-25 18:19 | Emergency (ER) | payer SELFPAY ==
[2021-05-25 18:30] VITALS: BP 149/90
[2021-05-25] MEDS ORDERED: ZOFRAN4 MG PO (18:50)
== END 2021-05-26 00:23 | disposition home or self-care (01) ==
LOC: ED 18:19
DX: R50.9 Fever, unspecified (principal); Z20.822 Contact with and (suspected) exposure to COVID-19; Z79.899 Other long term (current) drug therapy; F17.200 Nicotine dependence, unspecified, uncomplicated; R05.9 Cough, unspecified; R11.2 Nausea with vomiting, unspecified

== ENCOUNTER 2021-12-27 15:39 | Emergency (ER) | payer SELFPAY ==
[~2021-12-27] VITALS: Wt 104.3 kg
[2021-12-27 15:49] VITALS: BP 158/90
[2021-12-27 16:30] LABS: HEMATOCRIT 45.8 % (37.0-47.0); MEAN CELL VOLUME 81.8 fl (81.0-99.0); MEAN CORPUSCULAR HGB 26.8 pg (27.0-31.0); MEAN CORPUSCULAR HGB CONC 32.8 g/dl (33.0-37.0); PLATELET COUNT AUTOMATED 378 10*3/uL (130-400); RED CELL DISTRI WIDTH 14.6 % (0-14.5); WHITE BLOOD COUNT 13.2 10*3/uL (4.8-10.8)
[2021-12-27 16:33] LABS: MANUAL DIFF REFLEX YES
[2021-12-27 16:48] LABS: ALKALINE PHOSPHATASE 118 U/L (45-117); BUN 10 mg/dl (7-24); CHLORIDE 106 mmol/L (98-107); CREATININE 0.64 mg/dL (0.55-1.02); POTASSIUM 3.6 mmol/L (3.5-5.1); SGOT/AST 26 IU/L (3-35); SGPT/ALT 39 U/L (12-78); SODIUM 138 mmol/L (136-145); TOTAL PROTEIN 8.1 gm/dL (6.4-8.2)
[2021-12-27 17:02] LABS: PLATELET SUFFICIENCY NORMAL (NORMAL); TOTAL CELLS COUNTED 100 #CELLS
[2021-12-27] MEDS ORDERED: SEPTDS PO (18:03)
[2021-12-27] MEDS ORDERED: CEPHALEXIN500 M1 PO (18:03)
== END 2021-12-27 18:13 | disposition home or self-care (01) ==
LOC: ED 15:39
PROVIDERS: Physician Assistant
DX: L03.311 Cellulitis of abdominal wall (principal); E11.9 Type 2 diabetes mellitus without complications; R11.0 Nausea; F17.200 Nicotine dependence, unspecified, uncomplicated; Z90.49 Acquired absence of other specified parts of digestive tract; Z79.899 Other long term (current) drug therapy

== ENCOUNTER → 2022-03-02 | Outpatient (CLI) | payer SELFPAY | END | disposition home or self-care (01) | LOC: RESCLI 13:49 | PROVIDERS: ATTEND Internal Medicine | DX: M47.814 Spondylosis without myelopathy or radiculopathy, thoracic region (principal); J06.9 Acute upper respiratory infection, unspecified; E11.65 Type 2 diabetes mellitus with hyperglycemia; E55.9 Vitamin D deficiency, unspecified; H66.90 Otitis media, unspecified, unspecified ear; G25.81 Restless legs syndrome; G62.9 Polyneuropathy, unspecified; Z87.891 Personal history of nicotine dependence; Z90.49 Acquired absence of other specified parts of digestive tract; Z98.890 Other specified postprocedural states; Z79.84 Long term (current) use of oral hypoglycemic drugs; Z79.899 Other long term (current) drug therapy ==

== ENCOUNTER 2022-04-23 17:35 | Emergency (ER) | payer SELFPAY ==
[~2022-04-23] VITALS: Wt 113.4 kg
[2022-04-23 17:41] VITALS: BP 170/71
== END 2022-04-23 18:47 | disposition left against medical advice (07) ==
LOC: ED 17:35
DX: K08.89 Other specified disorders of teeth and supporting structures (principal); Z53.21 Procedure and treatment not carried out due to patient leaving prior to being seen by health care provider

== ENCOUNTER 2022-05-28 16:19 | Emergency (ER) | payer SELFPAY ==
[~2022-05-28] VITALS: Wt 111.1 kg
[2022-05-28 16:43] VITALS: BP 156/69
[2022-05-28] MEDS ORDERED: ZITHROMAX250 MG PO (20:38)
== END 2022-05-28 20:53 | disposition home or self-care (01) ==
LOC: ED 16:19
DX: J18.9 Pneumonia, unspecified organism (principal); Z90.89 Acquired absence of other organs; Z90.49 Acquired absence of other specified parts of digestive tract; F17.200 Nicotine dependence, unspecified, uncomplicated; Z20.822 Contact with and (suspected) exposure to COVID-19

== ENCOUNTER 2022-12-11 18:25 | Emergency (ER) | payer SELFPAY ==
[~2022-12-11] VITALS: Ht 165.1 cm; Wt 113.4 kg
[~2022-12-11 18:25] MED LIST changes: +ONDANSETRON4 MG SL; +ZITHROMAX250 MG PO
[2022-12-11 18:50] VITALS: BP 161/87
[2022-12-11 19:55] LABS: HEMATOCRIT 42.9 % (37.0-47.0); MANUAL DIFF REFLEX YES; MEAN CELL VOLUME 82.7 fl (81.0-99.0); MEAN CORPUSCULAR HGB 27.4 pg (27.0-31.0); MEAN CORPUSCULAR HGB CONC 33.1 g/dl (33.0-37.0); MEAN PLATELET VOLUME 9.4 fl (9.6-12.3); PLATELET COUNT AUTOMATED 316 10*3/uL (130-400); RED BLOOD COUNT 5.19 10*6/uL (4.10-5.10); RED CELL DISTRI WIDTH 14.4 % (0-14.5)
[2022-12-11 20:05] LABS: ACT PARTIAL THROMBO TIME 27.3 SECONDS (20.0-32.1)
[2022-12-11 20:23] LABS: ALKALINE PHOSPHATASE 108 U/L (46-116); BUN 9 mg/dl (9-23); CHLORIDE 105 mmol/L (98-107); LIPASE 44 U/L (12-53); POTASSIUM 3.9 mmol/L (3.4-5.1); SGPT/ALT 81 U/L (10-49); TOTAL PROTEIN 7.2 gm/dL (6.0-8.0)
[2022-12-11 20:40] LABS: ATYPICAL LYMPHS 4 % (0-0); PLATELET SUFFICIENCY NORMAL (NORMAL); TOTAL CELLS COUNTED 100 #CELLS
[2022-12-11 21:03] LABS: BILIRUBIN Negative (Negative); BLOOD Negative (Negative); CLARITY Clear (Clear); COLOR Yellow (Yellow); GLUCOSE Negative (Negative); KETONE Negative (Negative); LEUKO ESTERASE Negative (Negative); NITRITE Negative (Negative); SPECIFIC GRAVITY 1.015 (1.001-1.030); UROBILINOGEN 0.2 E.U./dl (0.0-1.0)
[2022-12-11 21:13] LABS: BACTERIA 1+; RBC 0-2 rbc/hpf (0-2)
[2022-12-11] MEDS ORDERED: AMOX-CLAV 875-1 EACH PO (21:56)
== END 2022-12-11 22:14 | disposition home or self-care (01) ==
LOC: ED 18:25
PROVIDERS: Internal Medicine
DX: N39.0 Urinary tract infection, site not specified (principal); J01.90 Acute sinusitis, unspecified; I10 Essential (primary) hypertension; K21.9 Gastro-esophageal reflux disease without esophagitis; E11.9 Type 2 diabetes mellitus without complications; Z90.89 Acquired absence of other organs; Z90.49 Acquired absence of other specified parts of digestive tract; Z98.890 Other specified postprocedural states; F17.200 Nicotine dependence, unspecified, uncomplicated

== ENCOUNTER 2023-04-01 12:07 | Emergency (ER) | payer OTHER ==
[~2023-04-01] VITALS: Ht 165.1 cm; Wt 111.1 kg
[~2023-04-01 12:07] MED LIST changes: +AMOX-CLAV 875-1 EACH PO
[2023-04-01 13:01] VITALS: BP 157/74
[2023-04-01] MEDS ORDERED: VICTOZA 2-0.6 MG/0.1 SQ (13:09)
[2023-04-01] MEDS ORDERED: METFORMIN HCL500 M2 PO (13:10)
== END 2023-04-01 16:11 | disposition home or self-care (01) ==
LOC: ED 12:07
DX: M25.562 Pain in left knee (principal); I10 Essential (primary) hypertension; K21.9 Gastro-esophageal reflux disease without esophagitis; E11.9 Type 2 diabetes mellitus without complications; Z90.49 Acquired absence of other specified parts of digestive tract; Z90.89 Acquired absence of other organs; Z98.890 Other specified postprocedural states; F17.200 Nicotine dependence, unspecified, uncomplicated

== ENCOUNTER → 2023-05-06 | Outpatient (CLI) | payer OTHER ==
[~2023-05-06] MED LIST changes: +METFORMIN HCL500 M2 PO; +VICTOZA 2-0.6 MG/0.1 SQ
== END | disposition home or self-care (01) ==
LOC: RESCLI 04:54
PROVIDERS: ATTEND Internal Medicine
DX: M79.606 Pain in leg, unspecified (principal); E11.9 Type 2 diabetes mellitus without complications; I10 Essential (primary) hypertension; E78.5 Hyperlipidemia, unspecified; E03.9 Hypothyroidism, unspecified; K21.9 Gastro-esophageal reflux disease without esophagitis; F17.210 Nicotine dependence, cigarettes, uncomplicated; E11.65 Type 2 diabetes mellitus with hyperglycemia; J06.9 Acute upper respiratory infection, unspecified; G62.9 Polyneuropathy, unspecified; G25.81 Restless legs syndrome; K76.0 Fatty (change of) liver, not elsewhere classified; Z79.899 Other long term (current) drug therapy; Z13.9 Encounter for screening, unspecified

== ENCOUNTER 2024-04-01 16:19 | Emergency (ER) | payer OTHER ==
[~2024-04-01] VITALS: Wt 104.8 kg
[2024-04-01 16:28] VITALS: BP 158/84
[2024-04-01 17:21] LABS: BILIRUBIN Negative (Negative); BLOOD Negative (Negative); CLARITY Clear (Clear); COLOR Yellow (Yellow); GLUCOSE 3+ (Negative); KETONE Negative (Negative); LEUKO ESTERASE Negative (Negative); NITRITE Negative (Negative); PH 5.5 (4.5-8.0); SPECIFIC GRAVITY >= 1.030 (1.001-1.030)
[2024-04-01 17:34] LABS: BASO % 0.3 % (0.0-1.0); EOS # 0.2 10*3/uL (0.0-0.4); EOS % 1.9 % (1.0-4.0); HEMATOCRIT 44.3 % (37.0-47.0); MEAN CELL VOLUME 83.6 fl (81.0-99.0); MEAN CORPUSCULAR HGB 27.2 pg (27.0-31.0); MEAN CORPUSCULAR HGB CONC 32.5 g/dl (33.0-37.0); MONO # 0.5 10*3/uL (0.1-1.0); MONO % 3.9 % (3.0-9.0); NEUT # 5.9 10*3/uL (2.3-7.9); NEUT % 51.4 % (47.0-73.0); PLATELET COUNT AUTOMATED 256 10*3/uL (130-400); RED CELL DISTRI WIDTH 13.4 % (0-14.5); WHITE BLOOD COUNT 11.5 10*3/uL (4.8-10.8)
[2024-04-01 17:41] LABS: BACTERIA TRACE
[2024-04-01 18:00] LABS: BUN 5 mg/dl (9-23); CHLORIDE 101 mmol/L (98-107); POTASSIUM 3.6 mmol/L (3.4-5.1)
[2024-04-01] MEDS ORDERED: FLUONAZOLE150 M1 PO (18:07)
[2024-04-01] MEDS ORDERED: FLUCONAZOLE 150 MG TAB PO ONE (18:10)
[2024-04-01] MEDS ORDERED: INSULIN REGULAR, HUMAN 1 UNIT/0.01 ML SC ONE (18:10)
== END 2024-04-01 18:11 | disposition home or self-care (01) ==
LOC: ED 16:19
PROVIDERS: Emergency Medicine; Physician Assistant Medical
DX: E11.65 Type 2 diabetes mellitus with hyperglycemia (principal); B37.31 Acute candidiasis of vulva and vagina; R30.0 Dysuria; F17.200 Nicotine dependence, unspecified, uncomplicated; Z79.899 Other long term (current) drug therapy; Z79.84 Long term (current) use of oral hypoglycemic drugs; Z90.49 Acquired absence of other specified parts of digestive tract; Z90.89 Acquired absence of other organs

== ENCOUNTER 2024-05-05 09:00 | Inpatient (IN) | payer OTHER ==
[~2024-05-05] VITALS: Ht 165.1 cm; Wt 106.7 kg
[~2024-05-05 09:00] MED LIST changes: +FLUONAZOLE150 M1 PO
[2024-05-05 09:09] VITALS: BP 138/71
[2024-05-05 09:35] LABS: HEMATOCRIT 40.8 % (37.0-47.0); MANUAL DIFF REFLEX YES; MEAN CELL VOLUME 80.5 fl (81.0-99.0); MEAN CORPUSCULAR HGB 27.2 pg (27.0-31.0); MEAN CORPUSCULAR HGB CONC 33.8 g/dl (33.0-37.0); MEAN PLATELET VOLUME 9.3 fl (9.6-12.3); PLATELET COUNT AUTOMATED 212 10*3/uL (130-400); RED BLOOD COUNT 5.07 10*6/uL (4.10-5.10); RED CELL DISTRI WIDTH 15.4 % (0-14.5); WHITE BLOOD COUNT 8.1 10*3/uL (4.8-10.8)
[2024-05-05 09:53] LABS: BUN 7 mg/dl (9-23); CHLORIDE 96 mmol/L (98-107); POTASSIUM 3.5 mmol/L (3.4-5.1)
[2024-05-05] MEDS ORDERED: SODIUM CHLORIDE 0.9% 1,000 ML IV SCH (10:05)
[2024-05-05 10:08] LABS: ATYPICAL LYMPHS 6 % (0-0); POLYCHROMASIA SLIGHT; TOTAL CELLS COUNTED 100 #CELLS
[2024-05-05 10:09] LABS: MICROCYTOSIS SLIGHT; OVALOCYTES FEW; PLATELET SUFFICIENCY NORMAL (NORMAL)
[2024-05-05] MEDS ORDERED: Vancomycin Hydrochloride 250 ML IV ONE (10:10)
[2024-05-05 11:10] LABS: BILIRUBIN Negative (Negative); BLOOD Negative (Negative); CLARITY Clear (Clear); COLOR Yellow (Yellow); GLUCOSE Trace (Negative); KETONE Negative (Negative); LEUKO ESTERASE Trace (Negative); NITRITE Negative (Negative); PH 6.5 (4.5-8.0); SPECIFIC GRAVITY <= 1.005 (1.001-1.030); UROBILINOGEN 0.2 E.U./dl (0.0-1.0)
[2024-05-05 12:00] VITALS: BP 128/60
[2024-05-05] MEDS ORDERED: ACETAMINOPHEN 325 MG TAB PO PRN (12:00)
[2024-05-05] MEDS ORDERED: Ondansetron Hydrochloride 4 MG/2 ML VIAL IV PRN (12:00)
[2024-05-05] MEDS ORDERED: Vancomycin Hydrochloride 1,000 MG in SODIUM CHLORIDE 0.9% 250 ML IV SCH (12:20)
[2024-05-05] MEDS ORDERED: Ceftriaxone Sodium 10 ML IV ONE (12:25)
[2024-05-05] MEDS ORDERED: DEXTROSE 10 % IN WATER 250 ML IV PRN (12:40)
[2024-05-05] MEDS ORDERED: GABAPENTIN 300 MG CAP PO SCH (14:00)
[2024-05-05 16:00] VITALS: BP 128/65
[2024-05-05] MEDS ORDERED: INSULIN LISPRO 1 UNIT/0.01 ML SQ SCH (16:30)
[2024-05-05] MEDS ORDERED: Pramipexole Dihydrochloride 0.5 MG TAB PO SCH ×2 (17:00→22:00)
[2024-05-05 17:30] VITALS: BP 128/60
[2024-05-05] MEDS ORDERED: VANCOMYCIN/WATER FOR INJ (PEG) 250 ML IV SCH (18:00)
[2024-05-05 20:00] VITALS: BP 103/42
[2024-05-06] VITALS: BP 124/63
[2024-05-06 08:00] VITALS: BP 122/64
[2024-05-06 09:36] LABS: HEMATOCRIT 36.9 % (37.0-47.0); MEAN CELL VOLUME 81.5 fl (81.0-99.0); MEAN CORPUSCULAR HGB 26.9 pg (27.0-31.0); MEAN CORPUSCULAR HGB CONC 33.1 g/dl (33.0-37.0); MEAN PLATELET VOLUME 8.9 fl (9.6-12.3); PLATELET COUNT AUTOMATED 190 10*3/uL (130-400); RED BLOOD COUNT 4.53 10*6/uL (4.10-5.10); RED CELL DISTRI WIDTH 15.7 % (0-14.5); WHITE BLOOD COUNT 6.8 10*3/uL (4.8-10.8)
[2024-05-06 09:46] LABS: MANUAL DIFF REFLEX YES
[2024-05-06] MEDS ORDERED: HYDROCHLOROTHIAZIDE 25 MG TAB PO SCH (10:00)
[2024-05-06] MEDS ORDERED: Ceftriaxone Sodium 1 GM in SYRINGE INFUSION 10 ML IV SCH (10:00)
[2024-05-06] MEDS ORDERED: Nicotine 14 MG PATCH T SCH (10:00)
[2024-05-06] MEDS ORDERED: Enoxaparin Sodium 40 MG/0.4 ML SYR SC SCH (10:00)
[2024-05-06] MEDS ORDERED: LISINOPRIL 40 MG TAB PO SCH (10:00)
[2024-05-06 10:21] LABS: ALKALINE PHOSPHATASE 147 U/L (46-116); BUN 8 mg/dl (9-23); CHLORIDE 101 mmol/L (98-107); CHOLESTEROL 139 mg/dL (<200); FREE T4 1.13 ng/dl (0.89-1.76); POTASSIUM 3.3 mmol/L (3.4-5.1); SGPT/ALT 23 U/L (5-49); TOTAL PROTEIN 5.3 gm/dL (6.0-8.0); TRIGLYCERIDES 240 mg/dl (<150)
[2024-05-06 10:22] LABS: VITAMIN D, 25-HYDROXY 13.2 ng/mL (30-100)
[2024-05-06 10:25] LABS: ATYPICAL LYMPHS 6 % (0-0); BASOPHILS 1 % (0-1); TOTAL CELLS COUNTED 100 #CELLS
[2024-05-06 10:26] LABS: PLATELET SUFFICIENCY NORMAL (NORMAL); POLYCHROMASIA SLIGHT
[2024-05-06 10:29] LABS: LDL CHOLESTEROL 74 mg/dL (9-159)
[2024-05-06] MEDS ORDERED: VANCOMYCIN/WATER FOR INJ (PEG) 400 ML IV SCH (10:30)
[2024-05-06] MEDS ORDERED: POTASSIUM CHLORIDE 20 MEQ TAB PO ONE (11:35)
[2024-05-06] MEDS ORDERED: MAGNESIUM SULFATE 50 ML IV ONE (11:40)
[2024-05-06] MEDS ORDERED: ERGOCALCIFEROL 50,000 IU CAP (1.25 MG) PO ONE (11:45)
[2024-05-06 12:00] VITALS: BP 115/63
[2024-05-06 16:00] VITALS: BP 111/50
[2024-05-06 20:00] VITALS: BP 105/42
[2024-05-06] MEDS ORDERED: FAMOTIDINE 10 MG TAB PO SCH (20:00)
[2024-05-06] MEDS ORDERED: Insulin Glargine, Recombinan 1 UNIT/0.01 ML SC SCH (22:00)
[2024-05-07] VITALS: BP 117/45
[2024-05-07 06:13] LABS: ALKALINE PHOSPHATASE 150 U/L (46-116); BUN 6 mg/dl (9-23); CHLORIDE 103 mmol/L (98-107); POTASSIUM 3.7 mmol/L (3.4-5.1); SGPT/ALT 21 U/L (5-49); TOTAL PROTEIN 5.5 gm/dL (6.0-8.0)
[2024-05-07 08:00] VITALS: BP 108/58
[2024-05-07] MEDS ORDERED: Bacitracin Zinc 14 GM TUBE T SCH (10:00)
[2024-05-07] MEDS ORDERED: Cholecalciferol 2,000 UNIT TABLET (50 MCG) PO SCH (10:00)
[2024-05-07 12:00] VITALS: BP 110/59
[2024-05-07] MEDS ORDERED: VANCOMYCIN/WATER FOR INJ (PEG) 400 ML IV SCH (12:00)
[2024-05-07 15:15] VITALS: BP 108/50
[2024-05-07 20:00] VITALS: BP 116/65
[2024-05-08] VITALS: BP 120/49
[2024-05-08 06:25] LABS: HEMATOCRIT 38.6 % (37.0-47.0); MEAN CELL VOLUME 83.5 fl (81.0-99.0); MEAN CORPUSCULAR HGB 27.3 pg (27.0-31.0); MEAN CORPUSCULAR HGB CONC 32.6 g/dl (33.0-37.0); MEAN PLATELET VOLUME 9.3 fl (9.6-12.3); PLATELET COUNT AUTOMATED 211 10*3/uL (130-400); RED BLOOD COUNT 4.62 10*6/uL (4.10-5.10); RED CELL DISTRI WIDTH 16.1 % (0-14.5); WHITE BLOOD COUNT 7.7 10*3/uL (4.8-10.8)
[2024-05-08 06:33] LABS: MANUAL DIFF REFLEX YES
[2024-05-08 06:52] LABS: BUN 9 mg/dl (9-23); CHLORIDE 101 mmol/L (98-107); POTASSIUM 3.9 mmol/L (3.4-5.1)
[2024-05-08 08:00] VITALS: BP 130/69
[2024-05-08 08:32] LABS: ATYPICAL LYMPHS 9 % (0-0); PLATELET SUFFICIENCY NORMAL (NORMAL); TOTAL CELLS COUNTED 100 #CELLS
[2024-05-08] MEDS ORDERED: BACITRACIN28.4 GM T (09:12)
[2024-05-08] MEDS ORDERED: HEARTBURN RELIE10 MG PO (09:12)
[2024-05-08] MEDS ORDERED: VITAMIN D350 MCG PO (09:12)
[2024-05-08] MEDS ORDERED: Vibra-Tab100 MG PO (09:12)
[2024-05-08] MEDS ORDERED: FLUONAZOLE150 M1 PO (09:48)
[2024-05-08] MEDS ORDERED: LANTUS100 UNIT/1 SC (10:27)
[2024-05-08] MEDS ORDERED: ADMELOG100 UNIT/1 SQ (10:27)
== END 2024-05-08 11:34 | disposition home or self-care (01) | DRG 600 ==
LOC: ED 09:00 → EDHOLD 10:30 → 4E 10:30 → EDHOLD 10:31 → 4E 16:53
PROVIDERS: Nurse Practitioner Family; Registered Nurse; ADMIT Internal Medicine; ATTEND Internal Medicine
DX: N61.1 Abscess of the breast and nipple (principal); E43 Unspecified severe protein-calorie malnutrition; E87.1 Hypo-osmolality and hyponatremia; E87.20 Acidosis, unspecified; Z68.42 Body mass index [BMI] 45.0-49.9, adult; J40 Bronchitis, not specified as acute or chronic; E11.65 Type 2 diabetes mellitus with hyperglycemia; L73.2 Hidradenitis suppurativa; F17.210 Nicotine dependence, cigarettes, uncomplicated; I10 Essential (primary) hypertension; G25.81 Restless legs syndrome; E66.01 Morbid (severe) obesity due to excess calories; E55.9 Vitamin D deficiency, unspecified; E03.9 Hypothyroidism, unspecified; Z90.49 Acquired absence of other specified parts of digestive tract; Z80.1 Family history of malignant neoplasm of trachea, bronchus and lung; Z79.899 Other long term (current) drug therapy

== ENCOUNTER 2024-07-25 19:18 | Emergency (ER) | payer OTHER ==
[~2024-07-25] VITALS: Ht 165.1 cm; Wt 107.0 kg
[~2024-07-25 19:18] MED LIST changes: +ADMELOG100 UNIT/1 SQ; +BACITRACIN28.4 GM T; +HEARTBURN RELIE10 MG PO; +LANTUS100 UNIT/1 SC; +VITAMIN D350 MCG PO; +Vibra-Tab100 MG PO
[2024-07-25 19:30] VITALS: BP 155/84
[2024-07-25] MEDS ORDERED: SODIUM CHLORIDE 0.9% 1,000 ML IV ONE (19:50)
[2024-07-25] MEDS ORDERED: Ketorolac Tromethamine 30 MG/ML VIAL IV ONE (19:50)
[2024-07-25 20:11] LABS: BASO % 0.3 % (0.0-1.0); EOS # 0.2 10*3/uL (0.0-0.4); HEMATOCRIT 43.4 % (37.0-47.0); MEAN CORPUSCULAR HGB 27.3 pg (27.0-31.0); MEAN CORPUSCULAR HGB CONC 32.9 g/dl (33.0-37.0); MONO # 0.4 10*3/uL (0.1-1.0); MONO % 4.8 % (3.0-9.0); NEUT # 2.6 10*3/uL (2.3-7.9); NEUT % 34.9 % (47.0-73.0); PLATELET COUNT AUTOMATED 228 10*3/uL (130-400); RED BLOOD COUNT 5.23 10*6/uL (4.10-5.10); RED CELL DISTRI WIDTH 13.3 % (0-14.5); WHITE BLOOD COUNT 7.3 10*3/uL (4.8-10.8)
[2024-07-25 20:35] LABS: BILIRUBIN Negative (Negative); BLOOD Negative (Negative); CLARITY Clear (Clear); COLOR Yellow (Yellow); GLUCOSE 3+ (Negative); KETONE Negative (Negative); LEUKO ESTERASE Negative (Negative); NITRITE Negative (Negative); PH 5.5 (4.5-8.0); SPECIFIC GRAVITY >= 1.030 (1.001-1.030); UROBILINOGEN 0.2 E.U./dl (0.0-1.0)
[2024-07-25 20:35] LABS: BUN 16 mg/dl (9-23); CHLORIDE 102 mmol/L (98-107); POTASSIUM 3.8 mmol/L (3.4-5.1)
[2024-07-25 20:41] LABS: BACTERIA 1+
[2024-07-25] MEDS ORDERED: CYCLOBENZAPRINE10 MG PO (21:27)
== END 2024-07-25 21:35 | disposition home or self-care (01) ==
LOC: ED 19:18
PROVIDERS: Internal Medicine
DX: M62.830 Muscle spasm of back (principal); E11.9 Type 2 diabetes mellitus without complications; R10.9 Unspecified abdominal pain; I10 Essential (primary) hypertension; K21.9 Gastro-esophageal reflux disease without esophagitis; R11.2 Nausea with vomiting, unspecified; F17.200 Nicotine dependence, unspecified, uncomplicated; Z90.49 Acquired absence of other specified parts of digestive tract; Z90.89 Acquired absence of other organs; Z98.890 Other specified postprocedural states

== ENCOUNTER → 2024-12-23 | Outpatient (CLI) | payer OTHER ==
[~2024-12-23] MED LIST changes: +CYCLOBENZAPRINE10 MG PO
[2024-12-23 16:45] LABS: BASO # 0.0 10*3/uL (0.0-0.1); BASO % 0.4 % (0.0-1.0); EOS # 0.2 10*3/uL (0.0-0.4); EOS % 2.2 % (1.0-4.0); MEAN CELL VOLUME 83.4 fl (81.0-99.0); MEAN CORPUSCULAR HGB 27.1 pg (27.0-31.0); MEAN PLATELET VOLUME 10.6 fl (9.6-12.3); MONO # 0.4 10*3/uL (0.1-1.0); MONO % 4.5 % (3.0-9.0); NEUT # 3.7 10*3/uL (2.3-7.9); NEUT % 39.3 % (47.0-73.0); NUCLEATED RED BLOOD CELL 0.0 % (0.0-0.0); NUCLEATED RED BLOOD CELL 0.0 10*3/uL (0.0-0.0); PLATELET COUNT AUTOMATED 260 10*3/uL (130-400); RED CELL DISTRI WIDTH 13.4 % (0-14.5)
[2024-12-23 17:14] LABS: BUN 5 mg/dl (9-23); SGPT/ALT 66 U/L (5-49)
[2024-12-23 17:37] LABS: FREE T4 1.23 ng/dl (0.89-1.76)
== END | disposition home or self-care (01) ==
LOC: LAB 15:35
PROVIDERS: ATTEND Nurse Practitioner Family
DX: I10 Essential (primary) hypertension (principal); E78.5 Hyperlipidemia, unspecified; E11.65 Type 2 diabetes mellitus with hyperglycemia; E55.9 Vitamin D deficiency, unspecified; G62.9 Polyneuropathy, unspecified; R30.0 Dysuria; Z12.31 Encounter for screening mammogram for malignant neoplasm of breast; Z76.89 Persons encountering health services in other specified circumstances

== ENCOUNTER → 2025-03-30 | Outpatient (CLI) | payer OTHER ==
[2025-03-30 19:00] LABS: MANUAL DIFF REFLEX YES; MEAN CELL VOLUME 83.8 fl (81.0-99.0); MEAN CORPUSCULAR HGB 27.8 pg (27.0-31.0); MEAN PLATELET VOLUME 9.8 fl (9.6-12.3); NUCLEATED RED BLOOD CELL 0.0 % (0.0-0.0); NUCLEATED RED BLOOD CELL 0.0 10*3/uL (0.0-0.0); PLATELET COUNT AUTOMATED 276 10*3/uL (130-400); RED CELL DISTRI WIDTH 13.3 % (0-14.5)
[2025-03-30 19:03] LABS: BUN 7 mg/dl (9-23); SGPT/ALT 72 U/L (5-49)
[2025-03-30 19:34] LABS: BASOPHILS 1 % (0-1); PLATELET SUFFICIENCY NORMAL (NORMAL)
== END | disposition home or self-care (01) ==
LOC: ZRHCWE 14:37
PROVIDERS: ATTEND Nurse Practitioner Family
DX: I10 Essential (primary) hypertension (principal); E11.65 Type 2 diabetes mellitus with hyperglycemia; E78.5 Hyperlipidemia, unspecified; E55.9 Vitamin D deficiency, unspecified

== ENCOUNTER → 2025-04-29 | Outpatient (CLI) | payer OTHER | END | disposition home or self-care (01) | LOC: US 07:52 | PROVIDERS: ATTEND Nurse Practitioner Family | DX: K76.0 Fatty (change of) liver, not elsewhere classified (principal); R74.8 Abnormal levels of other serum enzymes; Z90.49 Acquired absence of other specified parts of digestive tract ==